=== PATIENT | female | born 2000 | race African-American/Black ===

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

== ENCOUNTER 2021-06-05 14:03 | Emergency (ER) | payer OTHER ==
[~2021-06-05] VITALS: Ht 172.7 cm; Wt 104.3 kg
[2021-06-05 14:17] VITALS: BP 132/72
[2021-06-05 15:32] LABS: BILIRUBIN,URINE SMALL (NEGATIVE); COLOR,URINE ORANGE (YELLOW); LEUKOCYTE ESTERASE ,URINE Negative (NEGATIVE); NITRITE, URINE Positive (NEGATIVE); PROTEIN,URINE 30 mg/dl (NEGATIVE); UGLUCOSE 100 MG/DL mg/dL (NEGATIVE)
[2021-06-05 15:34] LABS: BACTERIA,URINE 2+ /HPF (None Seen); SQUAMOUS EPITHELIAL CELL,UR Few /HPF (None Seen)
[2021-06-05] MEDS ORDERED: CEPH500C2 PO (15:43)
--- NOTE | 2021-06-05 15:53 | NUR ---
Patient discharged to home in stable condition. Written and verbal after care instructions given. Patient verbalizes understanding of instruction.
== END 2021-06-05 15:53 | disposition home or self-care (01) ==
LOC: ER 14:03
DX: N39.0 Urinary tract infection, site not specified (principal)
CPT/HCPCS: 81001; 84703-TC; 87086-TC

== ENCOUNTER 2021-12-12 09:20 | Emergency (ER) | payer OTHER ==
[~2021-12-12] VITALS: Ht 177.8 cm; Wt 77.1 kg
[~2021-12-12 09:20] MED LIST: CEPH500C2 PO
[2021-12-12 09:45] VITALS: BP 127/81
[2021-12-12] MEDS ORDERED: AMOX500C2 PO (09:48)
--- NOTE | 2021-12-12 09:55 | NUR ---
RAPID STREP TEST DONE AND SENT TO LAB
--- NOTE | 2021-12-12 10:09 | NUR ---
[employer] TRAVEL COUNSELOR AT BEDSIDE FOR BLOOD DRAW
--- NOTE | 2021-12-12 10:14 | NUR ---
Patient discharged to home in stable condition. Written and verbal after care instructions given. Patient verbalizes understanding of instruction.
[2021-12-12 12:18] LABS: MONOTEST NEGATIVE (NEGATIVE)
[2021-12-15] MEDS ORDERED: FUROSEMIDE 40 MG TABLET ONE (12:28)
== END 2021-12-12 10:17 | disposition home or self-care (01) ==
LOC: ER 09:24
DX: J02.9 Acute pharyngitis, unspecified (principal)
CPT/HCPCS: 36415; 86308-TC; 86403-TC

== ENCOUNTER 2022-12-22 13:13 | Emergency (ER) | payer OTHER ==
[~2022-12-22] VITALS: Ht 175.3 cm; Wt 104.3 kg
[~2022-12-22 13:13] MED LIST changes: +AMOX500C2 PO
[2022-12-22 13:22] VITALS: BP 136/76
[2022-12-22] MEDS ORDERED: AMOX500T2 PO (13:46)
[2022-12-22] MEDS ORDERED: AMOXICILLIN TRIHYDRATE 250 MG CAPSULE ONE (13:49)
[2022-12-22] MEDS ORDERED: AMOXICILLIN TRIHYDRATE 500 MG CAPSULE PO ONE (14:00)
== END 2022-12-22 13:55 | disposition home or self-care (01) ==
LOC: ER 13:20
DX: J02.9 Acute pharyngitis, unspecified (principal); Z79.899 Other long term (current) drug therapy